=== PATIENT | male | born 1930 | race Caucasian/White ===

== ENCOUNTER → 2017-04-30 | Day surgery (SDC) | payer MEDICARE, OTHER ==
[~2017-04-30] MED LIST: ADVAIR 100-501 EAC1 IH; ADVAIR 250-501 EACH IH; ALBUTEROL 0.5ML; ALBUTEROL MININEB NEB; ALBUTEROL17 GM INH; AMLODIPINE BES2.5 MG PO; ASPIRIN PO; ASPIRIN81 M1 PO; BONIVA150 MG PO; CALCIUM 500 +1 EAC2 PO; CALCIUM1 TAB.CHEW PO; CENTRUM SILVER PO; COLACE PO; CORDARONE200 M1 PO; DICLOFENAC PO; DOCUSATE SODIU100 MG PO; ELIQUIS2.5 MG PO; ERYTHROMYCIN O3.5 GM OD; FISH OIL 1,0001 CAP PO; FISH OIL CONC1000 MG PO; FORADIL AEROLIZER PO; FORADIL12 MCG INH; FORADIL12 MCG NEB; FOSAMAX PO; HYDROCHLOROTH12.5 MG PO; LASIX20 MG PO; LEVAQUIN750 MG PO; LISINOPRIL20 MG PO; LO-DOSE ASPIRIN81 M1 PO; LOPRESSOR HCT1 EACH PO; LOPRESSOR PO; MUCUS RELIEF C PO; NEXIUM PO; NORVASC10 MG PO; NORVASC2.5 MG PO; OMEPRAZOLE40 M1 PO; OYSTER CALCIUM500 MG PO; PERCOCET5/325 PO; PREDNISONE PO; PREDNISONE10 MG PO; PREDNISONE10 MG/DOSE PO; PREVACID PO; PRILOSEC PO; PROAIR HFA8.5 GM INH; PROSCAR5 MG PO; PROVENTIL17 GM NEB; REGLAN PO; SINGULAIR PO; SPIRIVA18 MCG INH; VITAMIN B-12250 MCG PO; VITAMIN D1000 UNIT PO; VITAMIN D50000 UNIT PO; VOLTAREN50 MG PO; ZANTAC150 M1 PO; ZYRTEC10 M1 PO; [UNRECOGNIZED DRUG - OTHER]
--- NOTE | ~2017-04-30 | OR ---
Unit #: [id number] #: [id number] Patient: MO COREA [id number] [address] [id number] MR#: [id number] NAME: MO COREA. ROOM: Date of Procedure: 04/30/2017 Admission Date: 04/30/2017 Surgeon: Natalio Armendariz M.D. : 1930 Attending Physician: Natalio Armendariz M.D. Primary Care Physician: Primary Care Physician No OPERATIVE REPORT JOB NOTE: CC: [facility] PRIMARY CARE PHYSICIAN [facility] [place] [facility] [place]. PREOPERATIVE DIAGNOSES The patient has presented with a history of melena and gastrointestinal bleed. In addition, he has a history of chronic polyps with high-grade dysplasia. PROCEDURES PERFORMED Upper gastrointestinal endoscopy and biopsy as well as colonoscopy with polypectomy, colonoscopy with submucosal injection, and colonoscopy with APC ablation. 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 The anastomosis appeared healthy. There was considerable gastritis in the remnant and a biopsy was obtained from the antrum for CLOtest. For colonoscopy: 1. Postsurgical changes of previous colocolic anastomosis in the sigmoid region were seen. 2. A large polyp about 3 cm in size was seen in the rectum, this was classic villous adenoma. It was removed using technique of piecemeal polypectomy after submucosal injection of methyl cellulose and piecemeal polypectomy. The residual polyp tissue was then ablated using argon plasma coagulation therapy. 3. Rest of the examination up to the cecum was normal. The quality of the prep was good. RECOMMENDATIONS At the patient's age of 86, no further evaluations are recommended unless there is a major change in his status or a significant GI blood loss. We will also draw his hemoglobin and hematocrit today to ensure a baseline level. SEDATION USED MAC. Unit #: [id number] #: [id number] Patient: MO COREA DESCRIPTION OF PROCEDURE Following detailed explanation of potential risks and complications of an upper endoscopy and a colonoscopy, namely perforation, bleeding, and complications related to sedation, the patient was brought to GI lab and laid in the left lateral decubitus position. A lubricated tip of the Olympus video upper endoscope was passed through the bite block into the proximal esophagus under direct vision. The entire esophageal mucosa was examined and appeared normal. Z-line was nicely demarcated with there being no esophagitis or hiatus hernia. The scope was then advanced into the gastric cavity and the latter was insufflated. Mucosa of the fundus, body, and antrum was examined. Postsurgical changes of Billroth I gastroenteral anastomosis was noted. The anastomosis appeared healthy except for confluent erythema of the gastric remnant as one would expect following a such surgery. Several inches of the duodenum were intubated and appeared normal. Upon withdrawal and retroflexion, the cardia was visualized and appeared normal. A biopsy was obtained from the gastric remnant for CLOtest. The scope was then withdrawn into the distal esophagus. The entire esophageal mucosa was examined all the way up to pharynx and no additional findings were noted. The examination table was then turned by 180 degrees and the patient was positioned for a colonoscopy. A digital rectal examination was performed, which was normal. Lubricated tip of the Olympus video colonoscope was inserted through the anus and advanced under direct vision. The scope was advanced past the rectum into the sigmoid colon. Colocolic anastomosis was noted in the distal sigmoid. In addition, a large polyp about 3 cm in size was seen in the rectum, which had a classic villous adenoma appearance. The scope was then navigated past the operative site into the descending colon. No diverticula were noted in this area. The scope tip was then navigated all the way up to the cecum with visualization of the ileocecal valve and the appendiceal orifice. Preparation was excellent with good visualization and photodocumentation was obtained. Successive segments of the colonic mucosa were examined upon withdrawal and appeared unremarkable except for the polyp noted earlier. The attention was then focused on the rectal polyp and because of the shear size, it was decided to proceed with piecemeal polypectomy. The polyp bed was elevated after injection of submucosal methyl cellulose drops. The piecemeal polypectomy was then done using snare cautery polypectomy. Excellent hemostasis was achieved. The residual polyp tissue that was left behind was then ablated using argon plasma coagulation therapy. Excellent hemostasis was achieved and then photodocumentation was obtained. The patient did not have any diverticulosis nor any hemorrhoids. The scope was then withdrawn. The patient returned to the recovery area. He tolerated the procedure without any postprocedure complications. Dictated by.Ankit. Nathan Wheeler/tyson TD: 04/30/2017 16:48 JOB #: [id number] Unit #: [id number] #: [id number] Patient: MO COREA OPERATIVE REPORT Page 1 of 1 X Natalio Armendariz MD PROCEDURE OPERATIVE NOTE
[2017-04-30 16:16] LABS: BASOPHIL% 0.4 % (0-2.5); EOSINOPHIL% 0.2 % (0.0-7.0); HEMATOCRIT 32.9 % (38.0-50.0); LYMPHOCYTE# 0.7 X10e3 (1.0-3.5); LYMPHOCYTE% 9.1 % (17.0-45.0); MEAN CELL VOLUME 86.5 FL (83-96); MEAN CORPUSCULAR HGB CONC 33.6 g/dL (30-36); MEAN PLATELET VOLUME 6.7 FL (6.5-11.5); MONOCYTE# 0.4 X10e3 (0-1.0); MONOCYTE% 5.5 % (3.0-12.0); NEUTROPHIL# 6.9 X10e3 (1.5-7.1); NEUTROPHIL% 84.8 % (40-75); PLATELET COUNT 286 X10e3 (140-420); RED CELL DISTRIBUTION WIDTH 16.7 % (11.0-15.5); WHITE BLOOD COUNT 8.1 X10e3 (4.0-10.5)
[2017-04-30 16:18] LABS: DIFF IND YES
[2017-04-30 16:59] LABS: PLATELET ESTIMATE NORMAL (NORMAL)
== END | disposition home or self-care (01) ==
LOC: COPS 13:29
PROVIDERS: Internal Medicine Gastroenterology
DX: D12.8 Benign neoplasm of rectum (principal); J43.9 Emphysema, unspecified; N40.0 Benign prostatic hyperplasia without lower urinary tract symptoms; I48.91 Unspecified atrial fibrillation; M19.90 Unspecified osteoarthritis, unspecified site; Z86.010 Personal history of colon polyps; Z87.11 Personal history of peptic ulcer disease; Z79.01 Long term (current) use of anticoagulants; Z79.51 Long term (current) use of inhaled steroids; Z79.899 Other long term (current) drug therapy; Z90.49 Acquired absence of other specified parts of digestive tract; Z98.49 Cataract extraction status, unspecified eye; Z98.890 Other specified postprocedural states
CPT/HCPCS: 85025; 87077; 88305; J2250